=== PATIENT | female | born 1970 | race Caucasian/White ===

== ENCOUNTER 2021-10-18 19:55 | Emergency (ER) | payer MEDICAID ==
[~2021-10-18] VITALS: Ht 167.6 cm; Wt 68.9 kg
--- NOTE | 2021-10-18 20:51 | NUR ---
Patient in CT
[2021-10-18] MEDS: morphine 4 MG/ML inj SYRINge IV ONE (20:58)
[2021-10-18] MEDS ORDERED: acetaminophen 325mg tablet PO ONE (23:40)
[2021-10-18] MEDS: ondansetron/PF 4mg/2ml inj IV ONE (23:56)
[2021-10-18] MEDS: HYDROcodone/acetaminophen 10/325mg tab PO ONE (23:59)
[2021-10-19 00:39] VITALS: BP 121/81
== END 2021-10-19 00:43 | disposition home or self-care (01) ==
LOC: ER 19:56
DX: S96.912A Strain of unspecified muscle and tendon at ankle and foot level, left foot, initial encounter (principal); S93.402A Sprain of unspecified ligament of left ankle, initial encounter; M25.572 Pain in left ankle and joints of left foot; Z88.8 Allergy status to other drugs, medicaments and biological substances; W18.30XA Fall on same level, unspecified, initial encounter; Y93.89 Activity, other specified; Y92.89 Other specified places as the place of occurrence of the external cause; Y99.8 Other external cause status
CPT/HCPCS: 70450; 72125; 72131; 73610; 96374; 96375; 99285; J2270; J2405

== ENCOUNTER 2022-03-08 16:53 | Emergency (ER) | payer MEDICAID ==
[~2022-03-08] VITALS: Ht 172.7 cm; Wt 69.1 kg
[2022-03-08] MEDS ORDERED: morphine 4 MG/ML inj SYRINge IM ONE (20:10)
[2022-03-08] MEDS ORDERED: ondansetron 4mg rapidly disintigrating tab PO ONE (20:10)
[2022-03-08] MEDS ORDERED: acetaminophen 325mg tablet PO ONE (20:10)
[2022-03-08] MEDS ORDERED: ketorolac trometh inj. 60 MG/2 ML VIAL IM ONE (20:10)
[2022-03-08] MEDS ORDERED: orphenadrine citrate 60mg/2ml inj. IM ONE (20:10)
[2022-03-08] MEDS ORDERED: fentaNYL/PF 50MCG/1 ML 2ML syringe IV ONE (21:40)
[2022-03-08] MEDS ORDERED: CYCL-1 PO (22:37)
[2022-03-08] MEDS ORDERED: HYDR-3965 PO (22:37)
[2022-03-08 22:43] LABS: ALANINE AMINOTRANSFERASE 21 U/L (12-78); ALBUMIN 4.3 G/DL (3.4-5.0); ALBUMIN/GLOBULIN RATIO 1.2 (1.1-1.5); ALKALINE PHOSPHATASE 87 IU/L (46-116); ANION GAP 10 (8-16); ASPARTATE AMINO TRANSFERASE 23 U/L (10-37); BILIRUBIN,TOTAL 0.4 MG/DL (0.1-1.0); BLOOD UREA NITROGEN 13 MG/DL (7-18); BUN/CREATININE RATIO 16.5 (6.6-38.0); CALCIUM 9.5 MG/DL (8.5-10.1); CHLORIDE 105 MMOL/L (99-107); CREATININE 0.79 MG/DL (0.40-0.90); GLUCOSE 97 MG/DL (70-104); MAGNESIUM 2.1 MG/DL (1.5-2.4); POTASSIUM 3.9 MMOL/L (3.5-5.1); SODIUM 140 MMOL/L (135-145); TOTAL CARBON DIOXIDE 24.9 MMOL/L (24-32); TOTAL PROTEIN 7.8 G/DL (6.4-8.2); eGFR 76 ML/MIN
[2022-03-08 22:49] VITALS: BP 126/74
[2022-03-08 23:12] LABS: BASOPHILS % (AUTO) 0.9 % (0-1); EOSINOPHILS # (AUTO) 0.1 X10'3 (0-0.9); EOSINOPHILS % (AUTO) 1.3 % (0-6); HEMATOCRIT 36.5 % (35.0-45.0); HEMOGLOBIN 12.5 g/dl (12.0-16.0); LYMPHOCYTES # (AUTO) 2.5 X10'3 (1.1-4.8); LYMPHOCYTES % (AUTO) 46.4 % (21-51); MEAN CORPUSCULAR HEMOGLOBIN 32.9 PG (27.0-31.0); MEAN CORPUSCULAR HGB CONC 34.3 g/dL (33.0-36.5); MEAN PLATELET VOLUME 8.6 FL (7.4-10.4); MONOCYTES # (AUTO) 0.4 X10'3 (0-0.9); MONOCYTES % (AUTO) 6.7 % (2-12); NEUTROPHILS # (AUTO) 2.4 X10'3 (1.8-7.7); NEUTROPHILS % (AUTO) 44.7 % (42-75); PLATELET COUNT 263 X10'3 (140-440); RED CELL DISTRIBUTION WIDTH 13.7 % (11.5-14.5); WHITE BLOOD COUNT 5.4 X10'3 (4.5-11.0)
== END 2022-03-08 22:51 | disposition home or self-care (01) ==
LOC: ER 16:54
DX: G89.29 Other chronic pain (principal); M54.59 Other low back pain; Z88.8 Allergy status to other drugs, medicaments and biological substances; Z79.899 Other long term (current) drug therapy
CPT/HCPCS: 36415; 72148; 80053; 83735; 85025; 96372; 96374; 99285; J1885; J2270; J2360; J3010

== ENCOUNTER 2023-12-04 15:01 | Outpatient (CLI) | payer MEDICAID ==
[~2023-12-04 15:01] MED LIST: CYCL-1 PO
== END 2023-12-04 23:59 | disposition home or self-care (01) ==
LOC: RAD 15:01
PROVIDERS: ATTEND Family Medicine
DX: S60.222A Contusion of left hand, initial encounter (principal); S00.83XA Contusion of other part of head, initial encounter; M19.042 Primary osteoarthritis, left hand; M79.602 Pain in left arm; X58.XXXA Exposure to other specified factors, initial encounter; Y93.89 Activity, other specified; Y92.89 Other specified places as the place of occurrence of the external cause; Y99.8 Other external cause status
CPT/HCPCS: 70150; 73030; 73060; 73080; 73130

== ENCOUNTER 2024-05-23 12:23 | Emergency (ER) | payer MEDICAID | END 2024-05-23 14:30 | disposition left against medical advice (07) | LOC: ER 12:24 | DX: Z04.71 Encounter for examination and observation following alleged adult physical abuse (principal); Z53.21 Procedure and treatment not carried out due to patient leaving prior to being seen by health care provider; Y08.89XA Assault by other specified means, initial encounter; Y93.89 Activity, other specified; Y92.89 Other specified places as the place of occurrence of the external cause; Y99.8 Other external cause status ==

== ENCOUNTER 2024-05-27 19:28 | Emergency (ER) | payer MEDICAID ==
[~2024-05-27] VITALS: Ht 175.3 cm; Wt 71.4 kg
[2024-05-27 19:41] VITALS: BP 142/86; PULSE 98; RESP 16; TEMP 98; O2SAT 97
[2024-05-27] MEDS ORDERED: HYDR-3965 PO (20:49)
[2024-05-27] MEDS ORDERED: CEPH-585 PO (20:50)
[2024-05-27] MEDS: LIDOcaine 1% 30ml preserv. free vial IJ STA (21:37)
== END 2024-05-27 21:53 | disposition home or self-care (01) ==
LOC: ER 19:29
DX: S61.307A Unspecified open wound of left little finger with damage to nail, initial encounter (principal); Z91.041 Radiographic dye allergy status; Z79.2 Long term (current) use of antibiotics; Z79.899 Other long term (current) drug therapy; X58.XXXA Exposure to other specified factors, initial encounter; Y93.89 Activity, other specified; Y92.89 Other specified places as the place of occurrence of the external cause; Y99.8 Other external cause status
CPT/HCPCS: 11750; 11760; 99285; A6449

== ENCOUNTER 2024-06-12 16:31 | Emergency (ER) | payer MEDICAID ==
[~2024-06-12] VITALS: Ht 165.1 cm; Wt 68.9 kg
[2024-06-12 17:18] LABS: BASOPHILS % (AUTO) 0.5 % (0-1); EOSINOPHILS % (AUTO) 0.4 % (0-6); HEMATOCRIT 39.6 % (35.0-45.0); HEMOGLOBIN 13.8 g/dl (12.0-16.0); LYMPHOCYTES # (AUTO) 1.8 X10'3 (1.1-4.8); LYMPHOCYTES % (AUTO) 35.3 % (21-51); MEAN CORPUSCULAR HEMOGLOBIN 33.5 PG (27.0-31.0); MEAN CORPUSCULAR HGB CONC 34.8 g/dL (33.0-36.5); MEAN CORPUSCULAR VOLUME 96.2 FL (78-98); MONOCYTES # (AUTO) 0.3 X10'3 (0-0.9); MONOCYTES % (AUTO) 5.8 % (2-12); NEUTROPHILS # (AUTO) 2.9 X10'3 (1.8-7.7); PLATELET COUNT 356 X10'3 (140-440); RED BLOOD COUNT 4.11 X10'6 (4.20-5.60); RED CELL DISTRIBUTION WIDTH 13.1 % (11.5-14.5)
[2024-06-12] MEDS: LORazepam 1 MG tablet PO ONE (17:28)
[2024-06-12 17:30] LABS: ALANINE AMINOTRANSFERASE 24 U/L (12-78); ALBUMIN 4.5 G/DL (3.4-5.0); ALBUMIN/GLOBULIN RATIO 1.2 (1.1-1.5); ALKALINE PHOSPHATASE 92 IU/L (46-116); ANION GAP 11 (8-16); ASPARTATE AMINO TRANSFERASE 25 U/L (10-37); BILIRUBIN,TOTAL 0.5 MG/DL (0.1-1.0); BLOOD UREA NITROGEN 8 MG/DL (7-18); BUN/CREATININE RATIO 10.8 (10.0-20.0); CALCIUM 9.6 MG/DL (8.5-10.1); CHLORIDE 98 MMOL/L (99-107); CREATININE 0.74 MG/DL (0.40-0.90); GLUCOSE 139 MG/DL (70-104); SODIUM 135 MMOL/L (135-145); TOTAL CARBON DIOXIDE 25.8 MMOL/L (24-32); TOTAL PROTEIN 8.3 G/DL (6.4-8.2); eCRCL 76 ML/MIN; eGFR 81 ML/MIN
[2024-06-12 17:38] LABS: PRO BRAIN NATRIURETIC PEPTIDE < 30 PG/ML (0-125)
[2024-06-12] MEDS ORDERED: LORA-269 PO (17:53)
[2024-06-12 18:00] VITALS: BP 129/82; PULSE 110; RESP 16; TEMP 98.4; O2SAT 97
== END 2024-06-12 18:04 | disposition home or self-care (01) ==
LOC: ER 16:31
DX: R07.89 Other chest pain (principal); F43.9 Reaction to severe stress, unspecified; Z91.041 Radiographic dye allergy status; Z79.2 Long term (current) use of antibiotics; Z79.899 Other long term (current) drug therapy
CPT/HCPCS: 36415; 71045; 80053; 83880; 84484; 85025; 93005; 99285